=== PATIENT | female | born 1985 | race Caucasian/White ===

== ENCOUNTER 2017-07-14 09:52 | Emergency (ER) | payer OTHER ==
[~2017-07-14] VITALS: Ht 162.6 cm; Wt 82.0 kg
[~2017-07-14 09:52] MED LIST: IBUP-1223 PO; NORG1TAB70 PO; OXYC-302 PO
[2017-07-14] MEDS ORDERED: PREN1TAB60 PO (10:30)
[2017-07-14 11:17] LABS: BASOPHILS # (AUTO) 0.08 x10^3/uL (0-0.1); BASOPHILS % (AUTO) 1 % (0-1); EOSINOPHILS # (AUTO) 0.24 x10^3/uL (0-0.4); EOSINOPHILS % (AUTO) 3 % (1-7); LYMPHOCYTES # (AUTO) 1.91 x10^3/uL (1-3.4); LYMPHOCYTES % (AUTO) 20 % (22-44); MD NO; MEAN CORPUSCULAR HEMOGLOBIN 29.5 pg (27.0-34.8); MEAN CORPUSCULAR HGB CONC 33.8 g/dL (32.4-35.8); MEAN CORPUSCULAR VOLUME 87.5 fL (80-100); MEAN PLATELET VOLUME 8.9 fL (7.4-10.4); MONOCYTES # (AUTO) 0.49 x10^3/uL (0.2-0.8); MONOCYTES % (AUTO) 5 % (2-9); NEUTROPHILS # (AUTO) 6.76 x10^3/uL (1.8-6.8); NEUTROPHILS % (AUTO) 71 % (42-75); PLATELET COUNT 261 x10^3/uL (130-400); RED BLOOD COUNT 4.45 x10^6/uL (3.82-5.3); RED CELL DISTRIBUTION WIDTH 13.8 % (9.6-15.2)
[2017-07-14 11:28] LABS: ALANINE AMINOTRANSFERASE 14 U/L (12-78); ALBUMIN 2.9 g/dL (3.4-5.0); ANION GAP 10 mmol/L (5-15); CALCIUM 8.5 mg/dL (8.5-10.1); CHLORIDE 106 mmol/L (98-107); CREATININE 0.81 mg/dL (0.55-1.02)
[2017-07-14] MEDS ORDERED: SODIUM CHLORIDE 0.9% 1,000ML IVBOLUS ONE (11:30)
[2017-07-14 11:45] LABS: ALKALINE PHOSPHATASE 101 U/L (45-117); BILIRUBIN,TOTAL 0.4 mg/dL (0.2-1.0)
[2017-07-14] MEDS ORDERED: SODIUM CHLORIDE 0.9% 1,000 ML IV ONE (12:00)
[2017-07-14 12:15] VITALS: BP 110/61
[2017-07-14 12:48] LABS: MICROSCOPIC AUTO
[2017-07-14 12:55] LABS: CULTURE INDICATED? NO
== END 2017-07-14 12:05 | disposition home or self-care (01) ==
LOC: ED 10:45
DX: O20.0 Threatened abortion (principal); Z3A.10 10 weeks gestation of pregnancy
CPT/HCPCS: 36415; 76801; 80053; 81001; 83690; 84702; 85025; 86901; 99285

== ENCOUNTER 2018-02-01 07:21 | Outpatient (CLI) | payer OTHER ==
[~2018-02-01] VITALS: Ht 162.6 cm; Wt 87.0 kg
[~2018-02-01 07:21] MED LIST changes: +NORG1TAB28 PO; -NORG1TAB70 PO; +PREN1TAB60 PO
[2018-02-01 07:44] VITALS: BP 108/63
[2018-02-02] MEDS ORDERED: PREN1TAB60 PO (10:16)
== END 2018-02-01 08:47 | disposition home or self-care (01) ==
LOC: LDOP 07:21
PROVIDERS: ATTEND Obstetrics & Gynecology
DX: O26.893 Other specified pregnancy related conditions, third trimester (principal); R10.9 Unspecified abdominal pain
CPT/HCPCS: 59025; 99201; G0463

== ENCOUNTER 2018-02-02 10:10 | Inpatient (IN) | payer OTHER ==
[~2018-02-02] VITALS: Ht 162.6 cm; Wt 88.0 kg
[2018-02-02] MEDS ORDERED: PREN1TAB60 PO (10:16)
[2018-02-02] MEDS ORDERED: LACTATED RINGERS 1,000 ML IVBOLUS ONE (10:30)
[2018-02-02] MEDS ORDERED: SODIUM CITRATE/CITRIC ACID 30 ML UDC PO ONE (10:30)
[2018-02-02] MEDS: LACTATED RINGERS 1,000 ML IV SCH ×8 (10:30→23:29)
[2018-02-02] MEDS ORDERED: METOCLOPRAMIDE 5 MG/ML, 2ML IV ONE (10:30)
[2018-02-02] MEDS: PLEASE ENTER HEIGHT AND WEIGHT MC SCH ×2 (10:30→18:30)
[2018-02-02 10:31] VITALS: BP 111/59
[2018-02-02 11:00] LABS: BASOPHILS # (AUTO) 0.05 x10^3/uL (0-0.1); BASOPHILS % (AUTO) 1 % (0-1); EOSINOPHILS # (AUTO) 0.27 x10^3/uL (0-0.4); EOSINOPHILS % (AUTO) 3 % (1-7); LYMPHOCYTES % (AUTO) 22 % (22-44); MD NO; MEAN CORPUSCULAR HEMOGLOBIN 28.1 pg (27.0-34.8); MEAN CORPUSCULAR HGB CONC 32.7 g/dL (32.4-35.8); MEAN CORPUSCULAR VOLUME 85.8 fL (80-100); MEAN PLATELET VOLUME 10.1 fL (7.4-10.4); MONOCYTES # (AUTO) 0.49 x10^3/uL (0.2-0.8); MONOCYTES % (AUTO) 5 % (2-9); NEUTROPHILS # (AUTO) 6.21 x10^3/uL (1.8-6.8); NEUTROPHILS % (AUTO) 69 % (42-75); PLATELET COUNT 159 x10^3/uL (130-400); RED BLOOD COUNT 3.79 x10^6/uL (3.82-5.3)
[2018-02-02] MEDS ORDERED: METOCLOPRAMIDE 5 MG/ML, 2ML ONE ×2 (11:17→12:07)
[2018-02-02] MEDS ORDERED: NEWBORN KIT ONE (11:17)
[2018-02-02] MEDS ORDERED: SODIUM CITRATE/CITRIC ACID 30 ML UDC ONE (11:17)
[2018-02-02] MEDS ORDERED: OXYTOCIN 30U/ 0.9% NaCL 500ML 500 ML ONE (11:17)
[2018-02-02] MEDS ORDERED: PHENYLEPHRINE 10 MG/ML ONE (11:50)
[2018-02-02] MEDS ORDERED: ONDANSETRON 2MG/ML, 2ML ONE (11:50)
[2018-02-02] MEDS ORDERED: KETOROLAC 30 MG/1 ML ONE (11:50)
[2018-02-02] MEDS ORDERED: CEFAZOLIN 1,000 MG ONE (11:50)
[2018-02-02] MEDS ORDERED: FENTANYL PF 100 MCG/2ML ONE (11:50)
[2018-02-02] MEDS ORDERED: DEXAMETHASONE 4 MG/ML, 1ML ONE (11:50)
[2018-02-02] MEDS ORDERED: OXYTOCIN 10 UNITS/ML, 1ML ONE (11:50)
[2018-02-02] MEDS ORDERED: EPHEDRINE 50 MG/ML, 1ML ONE (11:50)
[2018-02-02] MEDS ORDERED: ONDANSETRON 2MG/ML, 2ML IVPush PRN (12:00)
[2018-02-02] MEDS ORDERED: HYDROcodone/APAP 7.5-325MG/15ML UDC PO PRN (12:00)
[2018-02-02] MEDS ORDERED: FENTANYL PF 100 MCG/2ML IV PRN (12:00)
[2018-02-02] MEDS ORDERED: MEPERIDINE/PF 25MG/0.5ML IVPush PRN (12:00)
[2018-02-02] MEDS ORDERED: MIDAZOLAM 1 MG/ML, 2ML IV PRN (12:00)
[2018-02-02] MEDS ORDERED: PROMETHAZINE 25 MG/ML, 1ML IV PRN (12:00)
[2018-02-02] MEDS ORDERED: OXYcodone 5 MG/5 ML ORAL.SOL UDC PO PRN (12:00)
[2018-02-02] MEDS ORDERED: ALBUTEROL SULFATE 2.5 MG/3 ML NPPB PRN (12:00)
[2018-02-02] MEDS ORDERED: HYDROmorphone 1 MG/ML, 1ML IV PRN (12:00)
[2018-02-02] MEDS ORDERED: LABETALOL 5MG/ML, 20ML IV PRN (12:00)
[2018-02-02] MEDS ORDERED: hydrALAzine 20 MG/ML, 1ML IV PRN (12:00)
[2018-02-02] MEDS: OXYTOCIN 30U/ 0.9% NaCL 500ML 500 ML IV SCH ×4 (13:29→23:29)
[2018-02-02] MEDS: KETOROLAC 30 MG/1 ML IV SCH ×2 (13:30→19:38)
[2018-02-02] MEDS ORDERED: MEPERIDINE/PF 50 MG/ML IVPush PRN (13:30)
[2018-02-02] MEDS ORDERED: ENOXAPARIN 40 MG/0.4 ML SQ SCH (13:30)
[2018-02-02] MEDS ORDERED: MEPERIDINE/PF 100 MG/ML IVPush PRN (13:30)
[2018-02-02] MEDS ORDERED: ONDANSETRON 2MG/ML, 2ML IV PRN (13:30)
[2018-02-02] MEDS ORDERED: MISOPROSTOL 200 MCG TABLET PR PRN (13:30)
[2018-02-02] MEDS ORDERED: METHYLERGONOVINE 0.2 MG/ML IM PRN (13:30)
[2018-02-02] MEDS ORDERED: morphine SULFATE 10 MG/ML, 1ML IVPush PRN ×2 (13:30)
[2018-02-02] MEDS ORDERED: ACETAMINOPHEN 325 MG TABLET PO PRN ×2 (13:30)
[2018-02-02] MEDS ORDERED: OXYcodone 5 MG/5 ML ORAL.SOL UDC ONE (13:50)
[2018-02-02 15:00] VITALS: BP 123/63
[2018-02-02] MEDS: OXYcodone/APAP 5/325MG TABLET PO PRN ×2 (17:03→22:02)
[2018-02-02 18:00] VITALS: BP 121/65
[2018-02-02 19:05] VITALS: BP 103/59
[2018-02-03 00:30] VITALS: BP 103/67
[2018-02-03] MEDS: KETOROLAC 30 MG/1 ML IV SCH ×4 (02:03→20:36)
[2018-02-03] MEDS: LACTATED RINGERS 1,000 ML IV SCH ×7 (02:17→13:29)
[2018-02-03] MEDS: OXYcodone/APAP 5/325MG TABLET PO PRN ×3 (04:28→20:36)
[2018-02-03 04:45] LABS: BASOPHILS # (AUTO) 0.08 x10^3/uL (0-0.1); BASOPHILS % (AUTO) 1 % (0-1); EOSINOPHILS # (AUTO) 0.07 x10^3/uL (0-0.4); EOSINOPHILS % (AUTO) 1 % (1-7); LYMPHOCYTES # (AUTO) 1.97 x10^3/uL (1-3.4); LYMPHOCYTES % (AUTO) 15 % (22-44); MD NO; MEAN CORPUSCULAR HEMOGLOBIN 28.3 pg (27.0-34.8); MEAN CORPUSCULAR HGB CONC 32.7 g/dL (32.4-35.8); MEAN CORPUSCULAR VOLUME 86.7 fL (80-100); MEAN PLATELET VOLUME 9.8 fL (7.4-10.4); MONOCYTES # (AUTO) 0.74 x10^3/uL (0.2-0.8); MONOCYTES % (AUTO) 6 % (2-9); NEUTROPHILS # (AUTO) 10.03 x10^3/uL (1.8-6.8); NEUTROPHILS % (AUTO) 78 % (42-75); PLATELET COUNT 155 x10^3/uL (130-400); RED BLOOD COUNT 3.49 x10^6/uL (3.82-5.3); RED CELL DISTRIBUTION WIDTH 15.9 % (9.6-15.2)
[2018-02-03 04:55] VITALS: BP 97/56
[2018-02-03] MEDS: OXYTOCIN 30U/ 0.9% NaCL 500ML 500 ML IV SCH ×2 (06:17→09:29)
[2018-02-03] MEDS: DOCUSATE 100 MG CAPSULE PO PRN ×2 (07:51→20:36)
[2018-02-03] MEDS: PRENATAL VIT/IRON/FA 1 EACH TABLET PO SCH (07:52)
[2018-02-03 08:00] VITALS: BP 92/53
[2018-02-03] MEDS ORDERED: DIPH,PERTUSS(ACELL),TET VAC/PF NC IM-VACC ONE (16:00)
[2018-02-03 19:00] VITALS: BP 101/63
[2018-02-04] MEDS: KETOROLAC 30 MG/1 ML IV SCH ×2 (02:08→07:54)
[2018-02-04 07:02] VITALS: BP 100/65
[2018-02-04] MEDS: DOCUSATE 100 MG CAPSULE PO PRN ×2 (07:54→20:19)
[2018-02-04] MEDS: PRENATAL VIT/IRON/FA 1 EACH TABLET PO SCH (07:54)
[2018-02-04] MEDS: FERROUS GLUCONATE 324 MG TABLET PO SCH ×2 (09:56→20:19)
[2018-02-04] MEDS: IBUPROFEN 600 MG TABLET PO PRN ×2 (13:53→20:19)
[2018-02-04 20:20] VITALS: BP 100/65
[2018-02-05] MEDS: IBUPROFEN 600 MG TABLET PO PRN ×4 (03:05→22:16)
[2018-02-05] MEDS: FERROUS GLUCONATE 324 MG TABLET PO SCH ×2 (07:52→18:14)
[2018-02-05] MEDS: OXYcodone/APAP 5/325MG TABLET PO PRN (07:52)
[2018-02-05] MEDS: PRENATAL VIT/IRON/FA 1 EACH TABLET PO SCH (07:52)
[2018-02-05 08:30] VITALS: BP 109/65
[2018-02-05] MEDS: DOCUSATE 100 MG CAPSULE PO PRN ×2 (09:46→22:16)
[2018-02-05 19:20] VITALS: BP 114/78
[2018-02-06] MEDS: OXYcodone/APAP 5/325MG TABLET PO PRN ×3 (01:36→15:04)
[2018-02-06 08:45] VITALS: BP 108/72
[2018-02-06] MEDS: PRENATAL VIT/IRON/FA 1 EACH TABLET PO SCH (09:00)
[2018-02-06] MEDS: DOCUSATE 100 MG CAPSULE PO PRN (09:40)
[2018-02-06] MEDS: FERROUS GLUCONATE 324 MG TABLET PO SCH (09:41)
[2018-02-06] MEDS: IBUPROFEN 600 MG TABLET PO PRN ×2 (09:41→15:04)
[2018-02-06] MEDS ORDERED: IBUP-1222 PO (14:17)
[2018-02-06] MEDS ORDERED: OXYC-302 PO (14:20)
== END 2018-02-06 15:50 | disposition home or self-care (01) | DRG 788 ==
LOC: LDIP 10:10 → 2NW 14:37
PROVIDERS: ADMIT Obstetrics & Gynecology; ATTEND Obstetrics & Gynecology
PROC: 10D00Z1 Extraction of Products of Conception, Low, Open Approach (ICD-10-PCS; principal; 2018-02-02)
PROC: 0HB7XZZ Excision of Abdomen Skin, External Approach (ICD-10-PCS; 2018-02-02)
DX: O34.211 Maternal care for low transverse scar from previous cesarean delivery (principal); Z37.0 Single live birth; Z3A.39 39 weeks gestation of pregnancy; O99.02 Anemia complicating childbirth; D64.9 Anemia, unspecified
CPT/HCPCS: 36415; 85025; 86850; 86900; 90715; G0378; J0690; J1100; J1885; J2405; J3010; C1765; J2370; J2590; J2765; J7120

== ENCOUNTER 2018-02-11 19:13 | Observation (INO) | payer OTHER ==
[~2018-02-11] VITALS: Ht 162.6 cm; Wt 81.0 kg
[~2018-02-11 19:13] MED LIST changes: +IBUP-1222 PO
[2018-02-11 19:59] LABS: BASOPHILS # (AUTO) 0.05 x10^3/uL (0-0.1); BASOPHILS % (AUTO) 1 % (0-1); EOSINOPHILS # (AUTO) 0.41 x10^3/uL (0-0.4); EOSINOPHILS % (AUTO) 5 % (1-7); LYMPHOCYTES # (AUTO) 2.42 x10^3/uL (1-3.4); LYMPHOCYTES % (AUTO) 30 % (22-44); MD NO; MEAN CORPUSCULAR HEMOGLOBIN 28.8 pg (27.0-34.8); MEAN CORPUSCULAR HGB CONC 32.9 g/dL (32.4-35.8); MEAN CORPUSCULAR VOLUME 87.3 fL (80-100); MEAN PLATELET VOLUME 8.9 fL (7.4-10.4); MONOCYTES # (AUTO) 0.44 x10^3/uL (0.2-0.8); MONOCYTES % (AUTO) 5 % (2-9); NEUTROPHILS # (AUTO) 4.83 x10^3/uL (1.8-6.8); NEUTROPHILS % (AUTO) 59 % (42-75); PLATELET COUNT 227 x10^3/uL (130-400); RED BLOOD COUNT 4.44 x10^6/uL (3.82-5.3); RED CELL DISTRIBUTION WIDTH 16.5 % (9.6-15.2)
[2018-02-11] MEDS ORDERED: ACETAMINOPHEN 325 MG TABLET PO ONE (20:00)
[2018-02-11] MEDS ORDERED: ACETAMINOPHEN 325 MG TABLET ONE (20:01)
[2018-02-11 20:07] LABS: ALANINE AMINOTRANSFERASE 38 U/L (12-78); ALBUMIN 2.9 g/dL (3.4-5.0); ANION GAP 9 mmol/L (5-15); CALCIUM 8.4 mg/dL (8.5-10.1); CHLORIDE 109 mmol/L (98-107); CREATININE 0.78 mg/dL (0.55-1.02)
[2018-02-11 20:09] LABS: ALKALINE PHOSPHATASE 103 U/L (45-117); BILIRUBIN,TOTAL 0.4 mg/dL (0.2-1.0); TOTAL PROTEIN 6.7 g/dL (6.4-8.2)
[2018-02-11 20:16] LABS: MICROSCOPIC INDICATED
[2018-02-11 20:28] LABS: CULTURE INDICATED? NO
[2018-02-11] MEDS ORDERED: LIDOCAINE-MPF 1%, 5ML ONE (22:53)
[2018-02-12] MEDS: SODIUM CHLORIDE FLUSH 10ML SYR IVF PRN ×2 (01:33→05:07)
[2018-02-12 01:40] VITALS: BP 111/75
[2018-02-12] MEDS: IBUPROFEN 600 MG TABLET PO PRN ×3 (02:28→16:45)
[2018-02-12 05:10] VITALS: BP 105/67
[2018-02-12] MEDS: OXYcodone/APAP 5/325MG TABLET PO PRN ×2 (06:14→16:45)
[2018-02-12 08:00] VITALS: BP 107/72
[2018-02-12 12:00] VITALS: BP 110/71
== END 2018-02-12 18:23 | disposition home or self-care (01) ==
LOC: ED 21:02 → EDIP 02-12 01:08 → UNDOADMOB 02-12 01:08 → INTOOBSV 02-12 01:08 → 2NW 02-12 01:08
PROVIDERS: ADMIT Obstetrics & Gynecology Maternal & Fetal Medicine; ATTEND Obstetrics & Gynecology Maternal & Fetal Medicine
DX: O99.73 Diseases of the skin and subcutaneous tissue complicating the puerperium (principal); L76.34 Postprocedural seroma of skin and subcutaneous tissue following other procedure; D64.9 Anemia, unspecified; F32.9 Major depressive disorder, single episode, unspecified
CPT/HCPCS: 10060; 36415; 76857; 80053; 81001; 85025; 97161; 97605; 99285; G0378

== ENCOUNTER → 2018-02-15 | Outpatient (CLI) | payer OTHER | END | disposition home or self-care (01) | LOC: WOUND 15:12 | PROVIDERS: ATTEND Internal Medicine | DX: T81.31XA Disruption of external operation (surgical) wound, not elsewhere classified, initial encounter (principal); F32.9 Major depressive disorder, single episode, unspecified; Z90.49 Acquired absence of other specified parts of digestive tract; Y83.8 Other surgical procedures as the cause of abnormal reaction of the patient, or of later complication, without mention of misadventure at the time of the procedure | CPT/HCPCS: 97597; 99215 ==

== ENCOUNTER → 2018-02-17 | Outpatient (CLI) | payer OTHER | END | disposition home or self-care (01) | LOC: WOUND 10:09 | PROVIDERS: ATTEND Internal Medicine | DX: T81.32XD Disruption of internal operation (surgical) wound, not elsewhere classified, subsequent encounter (principal); F32.9 Major depressive disorder, single episode, unspecified; Z90.710 Acquired absence of both cervix and uterus; Y83.8 Other surgical procedures as the cause of abnormal reaction of the patient, or of later complication, without mention of misadventure at the time of the procedure | CPT/HCPCS: 97605 ==

== ENCOUNTER → 2018-02-19 | Outpatient (CLI) | payer OTHER | END | disposition home or self-care (01) | LOC: WOUND 14:59 | PROVIDERS: ATTEND Family Medicine | DX: T81.32XD Disruption of internal operation (surgical) wound, not elsewhere classified, subsequent encounter (principal); F32.9 Major depressive disorder, single episode, unspecified; Z90.710 Acquired absence of both cervix and uterus; Z90.49 Acquired absence of other specified parts of digestive tract; Y83.8 Other surgical procedures as the cause of abnormal reaction of the patient, or of later complication, without mention of misadventure at the time of the procedure | CPT/HCPCS: 97605 ==

== ENCOUNTER → 2018-02-22 | Outpatient (CLI) | payer OTHER | END | disposition home or self-care (01) | LOC: WOUND 09:10 | PROVIDERS: ATTEND Internal Medicine | DX: T81.31XD Disruption of external operation (surgical) wound, not elsewhere classified, subsequent encounter (principal); F32.9 Major depressive disorder, single episode, unspecified; Z90.710 Acquired absence of both cervix and uterus; Z90.49 Acquired absence of other specified parts of digestive tract; Y83.8 Other surgical procedures as the cause of abnormal reaction of the patient, or of later complication, without mention of misadventure at the time of the procedure | CPT/HCPCS: 97597 ==

== ENCOUNTER → 2018-03-01 | Outpatient (CLI) | payer OTHER | END | disposition home or self-care (01) | LOC: WOUND 10:13 | PROVIDERS: ATTEND Internal Medicine | DX: T81.31XD Disruption of external operation (surgical) wound, not elsewhere classified, subsequent encounter (principal); F32.9 Major depressive disorder, single episode, unspecified; Z90.710 Acquired absence of both cervix and uterus; Z90.49 Acquired absence of other specified parts of digestive tract; Y83.8 Other surgical procedures as the cause of abnormal reaction of the patient, or of later complication, without mention of misadventure at the time of the procedure | CPT/HCPCS: 97597 ==

== ENCOUNTER 2018-03-08 11:30 | Outpatient (CLI) | payer OTHER | END 2018-03-15 12:52 | disposition home or self-care (01) | LOC: WOUND 11:30 | PROVIDERS: ATTEND Internal Medicine | DX: T81.31XD Disruption of external operation (surgical) wound, not elsewhere classified, subsequent encounter (principal); F32.9 Major depressive disorder, single episode, unspecified; Z90.710 Acquired absence of both cervix and uterus; Z90.49 Acquired absence of other specified parts of digestive tract; Y83.8 Other surgical procedures as the cause of abnormal reaction of the patient, or of later complication, without mention of misadventure at the time of the procedure | CPT/HCPCS: 99213 ==

== ENCOUNTER 2018-03-23 05:33 | Emergency (ER) | payer OTHER ==
[~2018-03-23] VITALS: Ht 162.6 cm; Wt 74.0 kg
[2018-03-23] MEDS ORDERED: MORPHINE SULFATE 4 MG/ML, 1ML ONE ×2 (05:49→06:14)
[2018-03-23] MEDS ORDERED: ONDANSETRON 2MG/ML, 2ML ONE (05:49)
[2018-03-23] MEDS: MORPHINE SULFATE 4 MG/ML, 1ML IVPush PRN ×2 (05:57→06:17)
[2018-03-23] MEDS ORDERED: ONDANSETRON 2MG/ML, 2ML IVPush ONE (06:00)
[2018-03-23] MEDS ORDERED: SODIUM CHLORIDE FLUSH 10ML SYR IVF ONE (06:00)
[2018-03-23 06:04] LABS: BASOPHILS # (AUTO) 0.04 x10^3/uL (0-0.1); BASOPHILS % (AUTO) 1 % (0-1); EOSINOPHILS # (AUTO) 0.33 x10^3/uL (0-0.4); EOSINOPHILS % (AUTO) 4 % (1-7); LYMPHOCYTES # (AUTO) 2.08 x10^3/uL (1-3.4); LYMPHOCYTES % (AUTO) 26 % (22-44); MD NO; MEAN CORPUSCULAR HEMOGLOBIN 29.2 pg (27.0-34.8); MEAN CORPUSCULAR HGB CONC 33.8 g/dL (32.4-35.8); MEAN CORPUSCULAR VOLUME 86.3 fL (80-100); MEAN PLATELET VOLUME 8.8 fL (7.4-10.4); MONOCYTES # (AUTO) 0.54 x10^3/uL (0.2-0.8); MONOCYTES % (AUTO) 7 % (2-9); NEUTROPHILS # (AUTO) 4.94 x10^3/uL (1.8-6.8); NEUTROPHILS % (AUTO) 62 % (42-75); PLATELET COUNT 189 x10^3/uL (130-400); RED BLOOD COUNT 4.79 x10^6/uL (3.82-5.3); RED CELL DISTRIBUTION WIDTH 15.6 % (9.6-15.2)
[2018-03-23 06:06] LABS: CULTURE INDICATED? YES; MICROSCOPIC INDICATED
[2018-03-23 06:14] LABS: ALBUMIN 3.7 g/dL (3.4-5.0); ANION GAP 9 mmol/L (5-15); CALCIUM 8.8 mg/dL (8.5-10.1); CHLORIDE 109 mmol/L (98-107); CREATININE 0.95 mg/dL (0.55-1.02)
[2018-03-23] MEDS ORDERED: KETOROLAC 30 MG/1 ML IVPush ONE (06:30)
[2018-03-23 08:51] LABS: MICROSCOPIC INDICATED
[2018-03-23 09:16] LABS: CULTURE INDICATED? NO
[2018-03-23 09:44] VITALS: BP 100/62
== END 2018-03-23 09:58 | disposition home or self-care (01) ==
LOC: ED 06:18
DX: N20.1 Calculus of ureter (principal); R51 Headache
CPT/HCPCS: 36415; 74176; 80048; 81001; 82040; 84703; 85025; 87086; 96374; 96375; 99284; J2405

== ENCOUNTER 2018-07-27 04:44 | Emergency (ER) | payer OTHER ==
[~2018-07-27] VITALS: Ht 162.6 cm; Wt 74.8 kg
[2018-07-27 04:51] VITALS: BP 118/81
[2018-07-27] MEDS ORDERED: FAMOTIDINE 20 MG TABLET ONE (05:21)
[2018-07-27] MEDS ORDERED: MAALOX/HYOSCYAMINE/LIDOCAINE 45 ML BTL ONE (05:21)
[2018-07-27] MEDS ORDERED: ONDANSETRON ODT 4 MG ONE (05:21)
[2018-07-27] MEDS ORDERED: MAALOX/HYOSCYAMINE/LIDOCAINE 45 ML BTL PO ONE (05:30)
[2018-07-27] MEDS ORDERED: ONDANSETRON ODT 4 MG PO ONE (05:30)
[2018-07-27] MEDS ORDERED: FAMOTIDINE 20 MG TABLET PO ONE (05:30)
--- NOTE | 2018-07-27 05:53 | NUR ---
PT ABLE TO KEEP MEDS DOWN SO FAR
--- NOTE | 2018-07-27 06:30 | NUR ---
PT UP TO BATHROOM WITH STEADY GAIT
--- NOTE | 2018-07-27 06:49 | NUR ---
Patient/Caregiver given discharge instructions and they have confirmed that they understand the instructions. Patient ambulatory with steady gait.
== END 2018-07-27 07:08 | disposition home or self-care (01) ==
LOC: ED 05:38
DX: R11.10 Vomiting, unspecified (principal)
CPT/HCPCS: 99284; Q0162